=== PATIENT | male | born 1990 | race American Indian/Alaskan Native ===

== ENCOUNTER 2024-02-17 10:03 | Emergency (ER) | payer OTHER ==
[~2024-02-17] VITALS: Ht 185.4 cm; Wt 122.0 kg
[~2024-02-17 10:03] MED LIST: BUSPIRONE HCL30 MG PO; CYCLOBENZAPRINE10 MG PO; DOXYCYCLINE HY100 MG PO; FLUOXETINE HCL20 MG PO; GABAPENTIN100 MG PO; INDOMETHACIN50 MG PO; OLANZAPINE10 MG PO; OLANZAPINE2.5 MG PO; OLANZAPINE5 MG PO; OXYCODONE HCL10 MG PO; PREDNISONE20 MG PO; PROVENTIL HFA6.7 GM INH
--- OUTSIDE RECORDS SUMMARY | 2024-02-17 10:05 | XMS ---
PreManage Notification: BRANDO MEDINA Security Handkerchief Cutter Events No recent Security Events currently on file CRITERIA MET - [facility] - 2 Visits in 30 Days CARE PROVIDERS -, Donna- Dentist: Skilled Nursing Professional [facility] PHONE: [phone] KATIA FUNK Counselor: Mental Health Current PHONE: [phone] CARE, URGENT Glaze Maker/Set Builder Current PHONE: [phone] OMAR ARENAS/Center: [facility] ([facility]) PHONE: Unknown SAVANAH ROUSE Nurse Practitioner: Psychiatric/Mental Health Current PHONE: Unknown ADDI CHAVARRIA [facility] Current PHONE: Unknown Leanna has no Care Guidelines for this patient. Mahad VISIT COUNT (12 MO.) [address] [facility] TOTAL 3 NOTE: Visits indicate total known visits. ED/UCC VISIT TRACKING (12 MO.) 02/17/2024 10:03 [facility] [place] TYPE: Emergency COMPLAINT: - BACK PAIN 02/16/2024 13:14 [facility] [place] TYPE: Emergency COMPLAINT: - BACK PAIN 04/08/2023 16:22 [facility] [place] TYPE: Emergency DIAGNOSES: - Noninfective gastroenteritis and colitis, unspecified - VOMITING CHILLS SWEATS ABD PAIN INPATIENT VISIT TRACKING (12 MO.) No inpatient visits to display in this time frame [email or web address]
[2024-02-17] MEDS ORDERED: PALIPERIDONE ER9 MG PO (10:23)
[2024-02-17] MEDS ORDERED: HYDROmorphone HCL 1 MG/ML SYR IV ONE (10:30)
[2024-02-17] MEDS ORDERED: diazePAM 10 MG/2 ML SYR IV ONE (10:30)
[2024-02-17] MEDS ORDERED: KETOROLAC TROMETHAMINE 30 MG/ML VIAL IV ONE (10:30)
[2024-02-17] MEDS ORDERED: LIDOCAINE HCL 4% 1 EACH PATCH TD ONE (10:30)
[2024-02-17] MEDS ORDERED: ondansetron HCL 4 MG/2 ML VIAL IV ONE (10:30)
[2024-02-17] MEDS ORDERED: LIDODERM1 EACH TOP (11:33)
[2024-02-17] MEDS ORDERED: PREDNISONE20 MG PO (11:33)
[2024-02-17] MEDS ORDERED: KETOROLAC TROME10 MG PO (11:33)
[2024-02-17 11:38] VITALS: BP 128/90
[2024-02-17] MEDS ORDERED: LIDOCAINE PATCH REMOVAL 1 EA TD SCH (21:00)
== END 2024-02-17 11:38 | disposition home or self-care (01) ==
LOC: ED 10:03
DX: S39.92XA Unspecified injury of lower back, initial encounter (principal); M62.830 Muscle spasm of back; W51.XXXA Accidental striking against or bumped into by another person, initial encounter; Z88.0 Allergy status to penicillin; Z88.6 Allergy status to analgesic agent; Z79.52 Long term (current) use of systemic steroids; Z79.899 Other long term (current) drug therapy
CPT/HCPCS: 96374; 96375; 99283-25; A9270; J1170; J1885; J2405; J3360

== ENCOUNTER 2025-03-31 11:43 | Emergency (ER) | payer BC, OTHER ==
[~2025-03-31] VITALS: Ht 185.4 cm; Wt 115.0 kg
[~2025-03-31 11:43] MED LIST changes: +CETIRIZINE HCL10 MG PO; +KETOROLAC TROME10 MG PO; +LIDODERM1 EACH TOP; +OMEPRAZOLE10 MG PO; +PALIPERIDONE ER9 MG PO; +PREGABALIN200 MG PO
--- OUTSIDE RECORDS SUMMARY | 2025-03-31 11:49 | XMS ---
PreManage Notification: BRANDO MEDINA Security Servomechanism Assembler Events No recent Security Events currently on file CRITERIA MET - Group Notification CARE PROVIDERS -Donna- Dentist: Beauty Consultant [facility] PHONE: [phone] CARE, URGENT Venetian Blind Cleaner And Repairer/Surveillance Dual Rate Officer Current PHONE: [phone] [facility]/[place]: [facility] Current MEDICAL PHONE: [phone] ADDI CHAVARRIA [facility] Current PHONE: Unknown Leanna has no Care Guidelines for this patient. Mahad VISIT COUNT (12 MO.) [address] [place] [address] 3 REBECCA Shanks TOTAL 7 NOTE: Visits indicate total known visits. ED/UCC VISIT TRACKING (12 MO.) 03/31/2025 11:43 [facility] [place] TYPE: Emergency COMPLAINT: - BILATERAL ARM PAIN 01/19/2025 02:29 [facility] [employer] [place] TYPE: Emergency DIAGNOSES: - Acute suppurative otitis media without spontaneous rupture of ear drum, right ear - COVID-19 - Nausea with vomiting, unspecified - COVID +, VOMITING 01/16/2025 02:05 [facility] [place] TYPE: Emergency DIAGNOSES: - Acute upper respiratory infection, unspecified - Otalgia, right ear - EAR PROBLEM 12/07/2024 08:22 [facility] [place] [employer] [place] TYPE: Emergency DIAGNOSES: - Unspecified injury of right lower leg, initial encounter - LEG INJURY 07/25/2024 16:27 [facility] [employer] [place] TYPE: Emergency DIAGNOSES: - Chest pain, unspecified - CHEST PAIN 07/17/2024 12:47 [facility] [place] TYPE: Emergency COMPLAINT: - ABDOMINAL PAIN 05/24/2024 09:58 [facility] [place] TYPE: Emergency COMPLAINT: - FLU SYMPTOMS INPATIENT VISIT TRACKING (12 MO.) No inpatient visits to display in this time frame [id number]
[2025-03-31] MEDS ORDERED: predniSONE 20 MG TAB PO ONE (14:00)
[2025-03-31] MEDS ORDERED: PREDNISONE20 MG PO (14:02)
[2025-03-31 14:11] VITALS: BP 105/86
== END 2025-03-31 14:10 | disposition home or self-care (01) ==
LOC: ED 11:43
DX: M54.12 Radiculopathy, cervical region (principal); Z79.899 Other long term (current) drug therapy; Z88.0 Allergy status to penicillin; Z88.6 Allergy status to analgesic agent
CPT/HCPCS: 99283; J7512